=== PATIENT | male | born 1990 | race Caucasian/White ===

== ENCOUNTER 2016-12-22 20:18 | Emergency (ER) | payer OTHER ==
[~2016-12-22] VITALS: Ht 177.8 cm; Wt 108.9 kg
[~2016-12-22 20:18] MED LIST: COMBIVENT RESPIM4 GM INH; DOXYCYCLINE HY100 MG PO; FLUOXETINE HCL20 MG PO; LEVAQUIN750 MG PO; NORCO 5-325 TA1 EACH PO; OMEPRAZOLE20 MG PO
[2016-12-22] MEDS ORDERED: VITAMIN D400 UNIT PO (20:39)
[2016-12-22] MEDS ORDERED: TRAZODONE HCL50 MG (20:40)
[2016-12-22] MEDS ORDERED: DAYTIME COLD-F118 ML PO (20:47)
[2016-12-23] MEDS ORDERED: GUAIFENESIN AC473 ML PO (00:56)
== END 2016-12-23 01:12 | disposition home or self-care (01) ==
LOC: ED 20:18
DX: B34.9 Viral infection, unspecified (principal); K21.9 Gastro-esophageal reflux disease without esophagitis; F17.200 Nicotine dependence, unspecified, uncomplicated; Z88.2 Allergy status to sulfonamides; Z79.899 Other long term (current) drug therapy
CPT/HCPCS: 71020; 80053; 81001; 83605; 85025; 87040; 87502; 96361; 96374; 96375; 99283; J2270; J2405; J7030

== ENCOUNTER 2020-10-10 03:05 | Emergency (ER) | payer OTHER ==
[~2020-10-10] VITALS: Ht 180.3 cm; Wt 122.5 kg
[~2020-10-10 03:05] MED LIST changes: +DAYTIME COLD-F118 ML PO; +GUAIFENESIN AC473 ML PO; +TRAZODONE HCL50 MG; +VITAMIN D400 UNIT PO
== END 2020-10-10 04:08 | disposition home or self-care (01) ==
LOC: ED 03:05
DX: S02.2XXA Fracture of nasal bones, initial encounter for closed fracture (principal); W50.0XXA Accidental hit or strike by another person, initial encounter; K21.9 Gastro-esophageal reflux disease without esophagitis; F17.200 Nicotine dependence, unspecified, uncomplicated; Z88.2 Allergy status to sulfonamides; Z88.5 Allergy status to narcotic agent; Z79.899 Other long term (current) drug therapy
CPT/HCPCS: 70160; 99283-25; A9270

== ENCOUNTER 2022-03-29 18:54 | Emergency (ER) | payer OTHER ==
[~2022-03-29] VITALS: Ht 180.3 cm; Wt 123.0 kg
[2022-03-29] MEDS ORDERED: ATORVASTATIN CA20 MG PO (21:09)
[2022-03-29] MEDS ORDERED: LISINOPRIL20 MG PO (21:09)
[2022-03-29] MEDS ORDERED: METOPROLOL SUCC25 MG PO (21:09)
[2022-03-29] MEDS ORDERED: ONDANSETRON ODT8 MG PO (22:06)
[2022-03-29] MEDS ORDERED: CYCLOBENZAPRINE10 MG PO (22:06)
== END 2022-03-29 22:33 | disposition home or self-care (01) ==
LOC: ED 18:54
DX: J10.1 Influenza due to other identified influenza virus with other respiratory manifestations (principal); Z20.822 Contact with and (suspected) exposure to COVID-19; I10 Essential (primary) hypertension; K21.9 Gastro-esophageal reflux disease without esophagitis; Z88.2 Allergy status to sulfonamides; Z88.5 Allergy status to narcotic agent; Z79.899 Other long term (current) drug therapy
CPT/HCPCS: 87502; 96372; 99283; A9270; J1885; U0003

== ENCOUNTER 2025-03-09 19:21 | Emergency (ER) | payer OTHER ==
[~2025-03-09] VITALS: Ht 180.3 cm; Wt 120.0 kg
[~2025-03-09 19:21] MED LIST changes: +ATORVASTATIN CA20 MG PO; +CYCLOBENZAPRINE10 MG PO; +LISINOPRIL20 MG PO; +METOPROLOL SUCC25 MG PO; +ONDANSETRON ODT8 MG PO
[2025-03-09 20:18] LABS: BLOOD/HGB, URINE NEGATIVE (Negative); KETONE, URINE TRACE (Negative); LEUK ESTERASE, URINE NEGATIVE (negative); NITRITE, URINE NEGATIVE (negative)
[2025-03-09 20:25] LABS: BASOPHILS 0.5 % (0.2-1.2); EOSINOPHILS 6.1 % (0.8-7.0); LYMPHOCYTES 18.4 % (21.8-53.1); MCH 29.5 PG (25.7-32.2); MCHC 34.4 g/dL (32.3-36.5); MCV 85.9 fL (79.0-92.2); MONOCYTES 5.1 % (5.3-12.2); NEUTROPHILS 69.7 % (34.0-67.9); RBC 5.59 M/uL (4.63-6.08)
[2025-03-09 20:33] LABS: AMPHETAMINES, URINE NEGATIVE (NEGATIVE); BARBITURATES, URINE NEGATIVE (NEGATIVE); BENZODIAZEPINE, URINE NEGATIVE (NEGATIVE); CANNABINOID, URINE POSITIVE (NEGATIVE); COCAINE, URINE NEGATIVE (NEGATIVE); ECSTASY, URINE NEGATIVE (NEGATIVE); FENTANYL, URINE NEGATIVE (NEGATIVE); METHADONE, URINE NEGATIVE (NEGATIVE); OPIATES, URINE NEGATIVE (NEGATIVE); OXYCODONE, URINE NEGATIVE (NEGATIVE); PHENCYCLIDINE, URINE NEGATIVE (NEGATIVE)
[2025-03-09 20:49] LABS: ALCOHOL, MEDICAL <3 ng/dL (<3); ALT (SGPT) 56 U/L (14-59); AST (SGOT) 26 U/L (15-37); GLOMERULAR FILTRATION RATE,EST 82 mL/min (>60); PROTEIN, TOTAL 7.6 g/dL (6.4-8.2); TSH, 3RD GENERATION 0.909 uIU/mL (0.358-3.740); UREA NITROGEN 11 mg/dL (7-18)
[2025-03-09] MEDS ORDERED: LORazepam 1 MG HOME.PACK PO ONE (22:15)
[2025-03-09] MEDS ORDERED: LORazepam 1 MG TAB PO ONE (22:15)
[2025-03-09 22:57] VITALS: BP 119/74
== END 2025-03-09 23:04 | disposition home or self-care (01) ==
LOC: ED 19:21
PROVIDERS: Family Medicine
DX: F41.9 Anxiety disorder, unspecified (principal)
CPT/HCPCS: 36415; 80053; 80307; 81003; 84443; 85025; 99284; A9270-GY; G0480